=== PATIENT | female | born 1960 ===

== ENCOUNTER → 2020-10-24 | Outpatient (CLI) | payer OTHER ==
--- NOTE | 2020-10-24 16:14 | XR ---
EXAMINATION TYPE: XR Hip Complete RT DATE OF EXAM: 10/24/2020 CLINICAL HISTORY: pain TECHNIQUE: AP and frogleg views of the right hip are obtained. COMPARISON: None. FINDINGS: There is no acute fracture/dislocation evident. The joint space appears within normal li mits. The overlying soft tissue appears unremarkable. IMPRESSION: 1. There is no acute fracture or dislocation. ICD 10 NO FRACTURE, INITIAL EVALUATION
== END | disposition home or self-care (01) ==
LOC: RADXRMAIN 15:55
PROVIDERS: ATTEND Physician Assistant
DX: M25.551 Pain in right hip (principal)
CPT/HCPCS: 73502

== ENCOUNTER → 2023-02-04 | Outpatient (CLI) | payer OTHER ==
--- NOTE | 2023-02-05 19:13 | MM ---
Reason for Exam: Screening (asymptomatic). Last mammogram was performed 7 year(s) and 3 month(s) ago. Patient History: Menarche at age 11. First Full-Term at age 18. Left ovary removed at age 43. Right ovary removed at age 43. Hysterectomy at age 42. Postmenopausal. Risk Values: Erika 5 year model risk: 1.2%. NCI Lifetime model risk: 5.5%. Prior Study Comparison: 10/27/2014 Bilateral Screening Mammogram, [facility]. 10/31/2015 Bilateral Screening Mammogram, [facility]. 11/02/2015 Right Diagnostic Mammogram, [facility]. Tissue Density: There are scattered fibroglandular densities. Findings: Analyzed By CAD. Pattern appears stable. There are some focal asymmetries within the upper outer bilateral breast, present previously No suspicious groups of microcalcifications, spiculated or lobular masses, architectural distortion or other secondary signs of malignancy are mammographically apparent. Overall Assessment: Benign, BI-RAD 2 Management: Screening Mammogram of both breasts in 1 year. A negative mammogram report should not preclude additional follow up of suspicious palpable abnormalities. Patient should continue monthly self breast exam. A clinical breast exam by your physician is recommended on an annual basis and results should be correlated with mammographic findings. Electronically signed and approved by: Rodrigo Madera D.O. Radiologis
== END | disposition home or self-care (01) ==
LOC: RADMAMWWP 15:32
PROVIDERS: ATTEND Family Medicine
DX: Z12.31 Encounter for screening mammogram for malignant neoplasm of breast (principal); Z78.0 Asymptomatic menopausal state
CPT/HCPCS: 77067

== ENCOUNTER 2024-09-24 06:03 | Day surgery (SDC) | payer OTHER ==
[2024-09-23 13:12] VITALS: BMI 37.2
[~2024-09-24 06:03] MED LIST: ALPRAZolam 0.25 MG TAB PO PRN; ALPRAZolam 0.5 MG TAB PO PRN; NITROGLYCERIN SL TABS 0.4 MG TAB SUBLINGUAL PRN
[2024-09-24 06:40] VITALS: RESP 16; TEMP 97.8
[2024-09-24] MEDS: EMPTY BAG 1 BAG with SODIUM CHLORIDE 0.9% 1,000 ML IV SCH (06:44)
[2024-09-24] MEDS: IV FLUID CONTINUATION 1,000 ML IV ONE (07:15)
[2024-09-24] MEDS: fentaNYL (PF) 50 MCG/ML 2 ML AMP IVP ONE (07:45)
[2024-09-24] MEDS: MIDAZOLAM 2 MG/2 ML VIAL IVP ONE (07:45)
[2024-09-24] MEDS: HEPARIN SODIUM,PORCINE (1 ML) 2,500 UNIT in SODIUM CHLORIDE 0.9% 250 ML IRRIGATION PRN (07:46)
[2024-09-24] MEDS: LIDOCAINE 1% INJ 10MG/ML (10 ML MDV) SQ ONE (07:46)
[2024-09-24] MEDS: HEPARIN SODIUM,PORCINE 10,000 UNIT in SODIUM CHLORIDE 0.9% 1,000 ML IRRIGATION PRN (07:46)
[2024-09-24] MEDS: VERAPAMIL SYRINGE (5 MG/10 ML) INTRAARTER ONE (07:51)
[2024-09-24] MEDS: HEPARIN SODIUM 1,000 UN/ML (10ML VL) IV ONE (07:55)
[2024-09-24] MEDS: IOPAMIDOL-370 100ML BTL INJ ONE (08:02)
--- NOTE | 2024-09-24 08:41 | P.CARDCATH ---
Date of Procedure: 09/24/24 Description of Procedure: DIAGNOSTIC CORONARY ANGIOGRAPHY and LEFT HEART CATH REPORT PROCEDURES PERFORMED: Left heart catheterization Selective coronary angiography Moderate conscious sedation 18 mins [Ultrasound assisted] Right radial access INDICATION: Abnormal stress test showing anterolateral wall reversible perfusion defect on nuclear scan. CONSENT: I have explained the procedural steps of above-mentioned procedures in layman's terms to the patient. I discussed the risks (including but not limited to stroke, emergent vascular or cardiac surgery or ), benefits and alternative therapies for the above-mentioned procedure. I discussed the risks of sedation/analgesia and blood product administration (if indicated). The patient has indicated understanding and acceptance of these risks. Conscious Sedation: Patient's ECG, heart rate, blood pressure, pulse oximetry were monitored throughout the duration of procedure under my direct supervision. 1 mg Versed and [50] mcg Fentanyl were used for induction of moderate conscious sedation. Total duration of moderate concious sedation 18 minutes. PROCEDURAL DETAILS: Patient was prepped and draped in sterile fashion. 1% lidocaine was infiltrated over the right radial artery. Right radial access was obtained via modified seldinger technique. [Ultrasound was used for radial access]. Medications: 5mg of verapamil was administed in the radial sheet. 5500 Units of Heparin was administed once the catheter reached the aortic root Wires and Catheter used: J wire was advanced under fluroscopy to get to aortic root. 5 comoran JR 4 diagnostic catheter was utilized obtain left ventricular pressure and pressure gradint across aortic valve. 5 comoran JR 4 diagnostic catheter was used to selectively engage the right coronary ostium. 5 comoran JL 3.5 diagnostic catheter was utilized to selectively engage the left coronary ostium. Angiographic images were reviewed in detail. Catheter and wire were removed. Radial sheet was flushed. The right radial sheath was removed and a TR band was placed. Patent hemostasis was achieved. The patient tolerated the procedure well. Patient was transported back to the post catheterization holding area in stable condition. TECHNICAL DETAILS Total radiation: 135 mgy Total fluro time: 1.4 mins Total contrast used: Isovue [60 ml] Complications: [none] Estimated Blood loss: less than 15 ml HEMODYNAMICS: Aortic Pressure: 124/74 mmHg. LV pressure: 125/2 mmHg. LVEDP 8 mmHg. There was no significant gradient across the aortic valve. SELECTIVE CORONARY ARTERIOGRAPHY: LEFT MAIN: The left main is short and large caliber vessel. It trifurcates into the LAD, ramus and circumflex. Left main appears angiographically normal. LEFT ANTERIOR DESCENDING CORONARY ARTERY: LAD is large caliber and reaches up to the apex. LAD is patent with mild luminal irregularities. Proximal LAD gives rise to a diagonal 1 branch which is a 1.75 mm vessel and has 80% occlusion at its ostium. Mid LAD gives rise to diagonal 2 branch which is a 2 mm vessel and appears angiographically patent. LEFT CIRCUMFLEX CORONARY ARTERY: It is nondominant vessel. Left circumflex is a moderate caliber vessel. Proximal LCx has 30% disease. Proximal LCx gives rise to small OM1 branch which is patent. Mid LCx gives rise to a medium size OM 2 branch and OM 3 branch which appears angiographically patent. RAMUS: Small caliber appears patent. RIGHT CORONARY ARTERY: Dominant vessel. RCA is large caliber. Proximal RCA has mild luminal irregularities. Mid RCA has 30% to 40% disease. Distal RCA is mild mid irregularities. Distally bifurcates into PDA and PL branches and they appear angiographically patent. IMPRESSION: 80% ostial diagonal 1 branch 1.75 mm vessel. 30% disease proximal LCx 30% disease in mid RCA PLAN: Aggressive risk factor modification per most recent ACC/AHA guidelines. 125 cc fluids for 4 hours Discharge home in 4 hours Follow-up in the office in 1-2 weeks. Performing Physician Sebas Sanchez MD, FACC, RPVI Thank you for allowing [facility] to participate in t his patient's care. Feel free to reach out in case of any followup questions.
[2024-09-24] MEDS: ASPIRIN 325 MG TAB PO ONE (10:16)
[2024-09-24] MEDS: ACETAMINOPHEN TAB 500 MG TAB PO STA (10:16)
[2024-09-24 14:02] VITALS: BP 127/67; PULSE 56
== END 2024-09-24 11:35 | disposition home or self-care (01) ==
LOC: CATHCVL 06:03
PROVIDERS: ATTEND Student in an Organized Health Care Education/Training Program
DX: R94.39 Abnormal result of other cardiovascular function study (principal); I10 Essential (primary) hypertension; E78.5 Hyperlipidemia, unspecified; E66.9 Obesity, unspecified; G47.33 Obstructive sleep apnea (adult) (pediatric); M06.9 Rheumatoid arthritis, unspecified; Z68.36 Body mass index [BMI] 36.0-36.9, adult; Z72.0 Tobacco use; Z79.82 Long term (current) use of aspirin; Z79.02 Long term (current) use of antithrombotics/antiplatelets; Z79.899 Other long term (current) drug therapy
CPT/HCPCS: 93458; 99152; C1769 ×2; C1894; J2250; J1644 ×3; J3010; Q9967; J2003